=== PATIENT | female | born 1965 | race American Indian/Alaskan Native ===

== ENCOUNTER 2017-05-29 07:51 | Outpatient (CLI) | payer OTHER ==
[2017-05-29] MEDS ORDERED: NACL ONE (13:14)
--- NOTE | 2017-05-29 14:11 | Cat Scan Report ---
CT abdomen and pelvis with contrast: Fibroids, pain. Following intravenous and oral contrast administration transverse images are obtained from the lower chest to the ischium with coronal and sagittal 2-D reformatted images. The visualized lung bases are clear. The abdominal and retroperitoneal organs are unremarkable. The abdominal aorta is normal in size and contour. There is no periaortic adenopathy in the mesentery appears normal. Most of the contrast is passed into the distal small bowel and into the colon. The visualized small bowel and colonic structures are generally unremarkable. The appendix is visualized. Moderate fecal matter is present in the colon. Images through the pelvis demonstrate what appears to be an enhancing mass at the dome of the uterus which measures roughly 3.7 cm. No adnexal masses identified. There no destructive bony lesions. Degenerative apophyseal joint changes are noted bilaterally at L4-5. Impressions: Uterine fibroid.
== END 2017-05-29 07:52 | disposition home or self-care (01) ==
LOC: CT 07:51
PROVIDERS: ATTEND Obstetrics & Gynecology
DX: D25.0 Submucous leiomyoma of uterus (principal); N94.9 Unspecified condition associated with female genital organs and menstrual cycle; R52 Pain, unspecified; M47.896 Other spondylosis, lumbar region
CPT/HCPCS: 74177; Q9967

== ENCOUNTER 2018-08-28 08:30 | Outpatient (CLI) | payer OTHER ==
--- NOTE | 2018-08-28 09:57 | Mammography Report ---
Bilateral mammogram: No previous studies available. CAD study utilized. Findings: Predominance adipose tissue bilaterally. Focal asymmetry or anterior right breast and upper anterior left breast. Focal asymmetry subareolar area right breast. Focal asymmetry outer left breast. No microcalcification. Normal axilla. Sonographic examination of right and left breast reveals no cystic or solid mass. Impression: Probably benign densities right and left breast. Six-month followup with a right to left mammogram recommended. BI-RADS CATEGORY: 3 = Probably benign ACR BI-RADS MAMMOGRAPHIC CODES: 0 = Needs additional imaging evaluation; 1 = Negative; 2 = Benign; 3 = Probably benign; 4 = Suspicious; 5 = Malignant; 6 = Known biopsy-proven malignancy COMMENT: 1. Dense breast tissue, i.e., adenosis, fibrocystic changes, etc., may obscure an underlying neoplasm. 2. Approximately 10% of cancers are not detected with mammography. 3. A negative mammography report should not delay biopsy if a clinically suspicious mass is present. COMMENT: Patient follow-up letters are generated in [employer].
== END 2018-08-28 08:31 | disposition home or self-care (01) ==
LOC: SPVWC 08:30
PROVIDERS: ATTEND Surgery
DX: R92.8 Other abnormal and inconclusive findings on diagnostic imaging of breast (principal)
CPT/HCPCS: 77066

== ENCOUNTER 2019-03-19 08:05 | Outpatient (CLI) | payer OTHER ==
--- NOTE | 2019-03-19 09:07 | Mammography Report ---
DIGITAL DIAGNOSTIC MAMMOGRAM : 03/19/2019 INDICATION: Recall for bilateral asymmetries. TECHNIQUE: Digital bilateral mammographic imaging was performed. Magnification views were obtained. Lateral views were obtained. COMPARISON: 08/28/2018 screening mammogram FINDINGS: Breast Density: There are scattered areas of fibroglandular density. Bilateral additional mammographic views were performed and are negative. No mass or architectural dis tortion. IMPRESSION: No mammographic evidence of malignancy. Follow up recommendation: Routine yearly BI-RADS Category 1: Negative. A "normal" or negative report should not discourage follow up or biopsy of a clinically significant f inding. A written summary of these findings will be mailed to the patient. The patient will be entered into a mammography reporting system which will generate a reminder letter for the patient's next appointmen t at the appropriate interval. According to the [employer], yearly mammograms are recommended starting at age 40 and continuing as long as a woman is in good health. Breast MRI is recommended for women with an ashely roximately 20-25% or greater lifetime risk of breast cancer, including women with a strong family his tory of breast or ovarian cancer and women who have been treated for Hodgkin's disease. Signer Name: Jimmy Gutierrez MD Signed: 03/19/2019 9:03 AM Workstation Name: [id number]
== END 2019-03-19 08:06 | disposition home or self-care (01) ==
LOC: SPVWC 08:05
PROVIDERS: ATTEND Surgery
DX: R92.8 Other abnormal and inconclusive findings on diagnostic imaging of breast (principal)
CPT/HCPCS: 77066

== ENCOUNTER 2021-02-02 14:53 | Outpatient (CLI) | payer OTHER ==
--- NOTE | 2021-02-09 08:04 | Magnetic Resonance Report ---
BILATERAL BREAST MRI WITH AND WITHOUT CONTRAST CLINICAL INFORMATION/INDICATION: This is a 56-year-old woman with family history of breast carcinoma and history of abnormal mammogram as well as history of right breast thickening. TECHNICAL: Axial T1 and T2-weighted fat sat images were obtained precontrast. After intravenous admin istration of 19 mL Clariscan serial axial T1 weighted images with fat saturation were obtained. 3-D M IP projections, kinetic analysis and subtraction imaging was utilized to evaluate. A dedicated 8-dejesus rae breast coil was used for image acquisition. COMPARISON: Bilateral screening mammogram 03/24/2020 FINDINGS: There is minimal background enhancement within both breasts. Scattered areas of fibroglandular densi ty are noted bilaterally. Right breast: No dominant mass or suspicious area of enhancement is seen in the right breast. Left breast: No dominant mass or suspicious area of enhancement is seen in the left breast. Axilla: No pathologically enlarged axillary lymph nodes are identified. Additional findings: Limited imaging of the thorax and upper abdomen demonstrates no focal abnormalit y. IMPRESSION: 1. Negative bilateral breast MRI scan. No evidence of malignancy. No MRI correlate is identified to a ccount for the area of thickening in the right breast upper outer quadrant. Follow up recommendation: Routine yearly Signer Name: Annemarie Hughes MD Signed: 02/09/2021 7:59 AM Workstation Name: [id number]
== END 2021-02-02 14:54 | disposition home or self-care (01) ==
LOC: SPVIMAG 14:53
PROVIDERS: ATTEND Surgery
DX: N64.4 Mastodynia (principal); R92.8 Other abnormal and inconclusive findings on diagnostic imaging of breast; Z80.3 Family history of malignant neoplasm of breast
CPT/HCPCS: A9575; C8908; 77049